=== PATIENT | female | born 1955 | race Caucasian/White ===

== ENCOUNTER 2020-12-06 13:22 | Emergency (ER) | payer MEDICARE ==
[~2020-12-06] VITALS: Ht 172.7 cm; Wt 84.8 kg
[2020-12-06 13:22] VITALS: BP_SYST 199
[2020-12-06] MEDS ORDERED: IBUP100O22 PO (15:07)
[2020-12-06] MEDS ORDERED: TYLL650 PO (15:07)
[2020-12-06] MEDS ORDERED: ACETAMINOPHEN 650 MG/20.3 ML UDC PO ONE (15:15)
[2020-12-06 15:28] VITALS: BP_SYST 167
== END 2020-12-06 15:30 | disposition home or self-care (01) ==
LOC: SED 13:22
DX: S02.40CA Maxillary fracture, right side, initial encounter for closed fracture (principal); Z88.5 Allergy status to narcotic agent; Z88.6 Allergy status to analgesic agent; Z79.899 Other long term (current) drug therapy; W01.198A Fall on same level from slipping, tripping and stumbling with subsequent striking against other object, initial encounter; Y93.89 Activity, other specified; Y92.89 Other specified places as the place of occurrence of the external cause; Y99.8 Other external cause status
CPT/HCPCS: 70486-TC; 73030; 76376; 99284

== ENCOUNTER 2021-04-27 17:42 | Inpatient (IN) | payer MEDICARE, SELFPAY ==
[~2021-04-27] VITALS: Ht 172.7 cm; Wt 82.6 kg
[2021-04-27 17:42] VITALS: BP_SYST 127
[~2021-04-27 17:42] MED LIST: IBUP100O22 PO; TYLL650 PO
[2021-04-27] MEDS ORDERED: ASPIRIN 81 MG TAB.CHEW PO ONE (18:00)
[2021-04-27 19:29] LABS: BASOPHILS % (AUTO) 0.4 % (0.0-2.0); EOSINOPHILS # (AUTO) 0.1 K/uL (0.0-0.4); EOSINOPHILS % (AUTO) 1.4 % (0.0-4.0); HEMATOCRIT 42.1 % (36-48); HEMOGLOBIN 13.9 g/dL (12.0-16.0); LYMPHOCYTES # (AUTO) 1.2 K/uL (1.0-5.5); LYMPHOCYTES % (AUTO) 20.3 % (20.5-51.5); MEAN CORPUSCULAR HEMOGLOBIN 31 pg (27-31); MEAN CORPUSCULAR HGB CONC 33 % (32-36); MEAN CORPUSCULAR VOLUME 93 fL (79.0-98.0); MONOCYTES # (AUTO) 0.6 K/uL (0.0-1.0); MONOCYTES % (AUTO) 9.5 % (1.7-9.3); NEUTROPHILS # (AUTO) 4.1 K/uL (1.8-7.7); NEUTROPHILS % (AUTO) 68.4 % (40.0-70.0); PLATELET COUNT (AUTO) 183 K/uL (130-430); RED BLOOD CELL COUNT(AUTO) 4.51 MIL/uL (4.2-6.2); RED CELL DISTRIBUTION WIDTH 14.1 % (9.0-15.0); WHITE BLOOD COUNT (AUTO) 5.9 K/uL (4.8-10.8)
[2021-04-27 19:39] LABS: CALCIUM 8.4 mg/dL (8.4-11.0); CREATININE 0.81 mg/dL (0.55-1.30); POTASSIUM 3.4 mmol/L (3.5-5.1)
[2021-04-27] MEDS ORDERED: MORPHINE 4 MG INJ. 4 MG/ML VIAL IVP ONE (19:45)
[2021-04-27 19:48] LABS: ALBUMIN 2.8 g/dL (3.4-4.8); TOTAL BILIRUBIN 0.3 mg/dL (0.0-1.0)
[2021-04-27] MEDS ORDERED: IOHEXOL 350 mgI/mL, 150 ML INFUS..BTL IV ONE (20:47)
[2021-04-27] MEDS ORDERED: ENOXAPARIN SODIUM 60 MG/0.6 ML SYRINGE SUBCUT ONE (21:30)
[2021-04-27] MEDS ORDERED: ENOXAPARIN SODIUM 60 MG/0.6 ML SYRINGE ONE (21:31)
[2021-04-28] MEDS ORDERED: *HEPARIN PER PHARMACY XX PRN (01:00)
[2021-04-28 01:52] VITALS: BP_SYST 130
[2021-04-28] MEDS ORDERED: MORPHINE 2 MG/ML INJ. SYRINGE IVP PRN (02:00)
[2021-04-28] MEDS ORDERED: ONDANSETRON HCL 4 MG/2 ML VIAL IVP PRN (02:00)
[2021-04-28] MEDS: MORPHINE 2 MG/ML INJ. SYRINGE IVP PRN ×2 (02:44→12:09)
[2021-04-28] MEDS ORDERED: HEPARIN SODIUM,PORCINE 2000 UNITS/0.4 ML BOLUS IVP PRN (02:45)
[2021-04-28] MEDS ORDERED: HEPARIN SODIUM,PORCINE 3000 UNITS/0.6 ML BOLUS IVP PRN (02:45)
[2021-04-28] MEDS ORDERED: *HEPARIN PER PHARMACY XX ONE (03:00)
[2021-04-28] MEDS ORDERED: HEPARIN 25,000 UNITS in 250 ML PREMIX IV PRN (03:00)
[2021-04-28] MEDS ORDERED: HEPARIN 25,000 UNITS/D5W 250ML 250 ML IV ONE (03:38)
[2021-04-28] MEDS: D5/0.45 NS 1,000 ML IV SCH ×2 (03:42→21:10)
[2021-04-28 08:08] VITALS: BP_SYST 111
[2021-04-28] MEDS ORDERED: COMMUNICATION ORDER XX ONE (09:45)
[2021-04-28] MEDS ORDERED: APIXABAN 2.5 MG TABLET PO ONE (10:00)
[2021-04-28 12:07] VITALS: BP_SYST 107
[2021-04-28 16:00] VITALS: BP_SYST 95
[2021-04-28 20:50] VITALS: BP_SYST 120
[2021-04-28] MEDS: GABAPENTIN 300 MG CAPSULE PO SCH (21:00)
[2021-04-28] MEDS: TOPIRAMATE 25 MG TABLET(TOPAMAX) PO SCH (21:00)
[2021-04-28] MEDS: APIXABAN 2.5 MG TABLET PO SCH (21:14)
[2021-04-29 04:00] VITALS: BP_SYST 140
[2021-04-29] MEDS: LEVOTHYROXINE SODIUM 0.1 MG TABLET PO SCH (06:40)
[2021-04-29] MEDS: Effexor XR 37.5 MG PO SCH (09:40)
[2021-04-29] MEDS: APIXABAN 2.5 MG TABLET PO SCH ×2 (09:42→20:17)
[2021-04-29] MEDS: PANTOPRAZOLE SODIUM 40 MG TAB PO SCH (09:43)
[2021-04-29] MEDS ORDERED: POTASSIUM CHLORIDE 20 MEQ/PKT PACKET PO ONE (10:45)
[2021-04-29 12:00] VITALS: BP_SYST 134
[2021-04-29] MEDS: D5/0.45 NS 1,000 ML IV SCH (15:55)
[2021-04-29 17:38] LABS: BASOPHILS % (AUTO) 0.4 % (0.0-2.0); EOSINOPHILS # (AUTO) 0.1 K/uL (0.0-0.4); EOSINOPHILS % (AUTO) 2.9 % (0.0-4.0); HEMATOCRIT 36.9 % (36-48); HEMOGLOBIN 12.4 g/dL (12.0-16.0); LYMPHOCYTES % (AUTO) 24.2 % (20.5-51.5); MEAN CORPUSCULAR HEMOGLOBIN 32 pg (27-31); MEAN CORPUSCULAR HGB CONC 34 % (32-36); MEAN CORPUSCULAR VOLUME 96 fL (79.0-98.0); MONOCYTES # (AUTO) 0.5 K/uL (0.0-1.0); MONOCYTES % (AUTO) 11.1 % (1.7-9.3); NEUTROPHILS # (AUTO) 2.6 K/uL (1.8-7.7); NEUTROPHILS % (AUTO) 61.4 % (40.0-70.0); PLATELET COUNT (AUTO) 222 K/uL (130-430); RED BLOOD CELL COUNT(AUTO) 3.86 MIL/uL (4.2-6.2); RED CELL DISTRIBUTION WIDTH 13.8 % (9.0-15.0); WHITE BLOOD COUNT (AUTO) 4.3 K/uL (4.8-10.8)
[2021-04-29 18:00] VITALS: BP_SYST 118
[2021-04-29 19:07] LABS: ALBUMIN 2.3 g/dL (3.4-4.8); CALCIUM 8.3 mg/dL (8.4-11.0); CREATININE 0.66 mg/dL (0.55-1.30); POTASSIUM 4.2 mmol/L (3.5-5.1); TOTAL BILIRUBIN 0.2 mg/dL (0.0-1.0)
[2021-04-29 19:47] LABS: PROTHROMBIN TIME 10.7 SECS (9.5-12.5)
[2021-04-29 20:14] VITALS: BP_SYST 115
[2021-04-29] MEDS: GABAPENTIN 300 MG CAPSULE PO SCH (20:17)
[2021-04-29] MEDS: TOPIRAMATE 25 MG TABLET(TOPAMAX) PO SCH (20:18)
[2021-04-30 04:00] VITALS: BP_SYST 136
[2021-04-30] MEDS: LEVOTHYROXINE SODIUM 0.1 MG TABLET PO SCH (06:37)
[2021-04-30 08:00] VITALS: BP_SYST 129
[2021-04-30] MEDS: Effexor XR 37.5 MG PO SCH (08:39)
[2021-04-30] MEDS: APIXABAN 2.5 MG TABLET PO SCH (08:40)
[2021-04-30] MEDS: PANTOPRAZOLE SODIUM 40 MG TAB PO SCH (08:40)
[2021-04-30] MEDS: D5/0.45 NS 1,000 ML IV SCH (08:42)
[2021-04-30 12:33] VITALS: BP_SYST 114
[2021-04-30] MEDS ORDERED: APIX5TAB4 PO (14:52)
[2021-04-30] MEDS ORDERED: APIX5TAB PO (14:52)
[2021-04-30 15:58] VITALS: BP_SYST 114
[2021-04-30] MEDS ORDERED: APIXABAN 2.5 MG TABLET PO ONE (16:45)
[2021-04-30 17:01] VITALS: BP_SYST 113
== END 2021-04-30 17:10 | disposition home or self-care (01) | DRG 175 ==
LOC: SED 17:42 → STU 04-28 00:11
PROVIDERS: ADMIT Internal Medicine; ATTEND Internal Medicine
DX: I26.99 Other pulmonary embolism without acute cor pulmonale (principal); E43 Unspecified severe protein-calorie malnutrition; I48.20 Chronic atrial fibrillation, unspecified; E03.9 Hypothyroidism, unspecified; E66.9 Obesity, unspecified; Z96.653 Presence of artificial knee joint, bilateral; Z20.822 Contact with and (suspected) exposure to COVID-19; G62.9 Polyneuropathy, unspecified; Z60.2 Problems related to living alone; I27.20 Pulmonary hypertension, unspecified; Z85.3 Personal history of malignant neoplasm of breast; Z87.891 Personal history of nicotine dependence; Z92.21 Personal history of antineoplastic chemotherapy; Z92.3 Personal history of irradiation; Z68.27 Body mass index [BMI] 27.0-27.9, adult; Z88.8 Allergy status to other drugs, medicaments and biological substances; Z79.899 Other long term (current) drug therapy; Z90.10 Acquired absence of unspecified breast and nipple; Z82.49 Family history of ischemic heart disease and other diseases of the circulatory system
CPT/HCPCS: 36415; 71045; 71275; 76376; 80053; 83880; 84484; 85025; 85306; 85379; 85610-TC; 85730-TC; 93005; 93306; 93970; 96374; 99285; G0378; J1644; J1650; J2270; Q9967